=== PATIENT | male | born 1995 | race African-American/Black ===

== ENCOUNTER 2021-09-14 08:48 | Emergency (ER) | payer OTHER ==
[~2021-09-14] VITALS: Ht 185.4 cm; Wt 109.8 kg
[2021-09-14 08:49] VITALS: BP 126/71
[2021-09-14] MEDS ORDERED: ACET-897 PO (09:15)
[2021-09-14] MEDS ORDERED: OCUF0.25 OS (09:32)
== END 2021-09-14 09:44 | disposition home or self-care (01) ==
LOC: M ED 08:48
DX: H10.9 Unspecified conjunctivitis (principal); F17.290 Nicotine dependence, other tobacco product, uncomplicated